=== PATIENT | female | born 1990 | race American Indian/Alaskan Native ===

== ENCOUNTER 2016-10-26 07:24 | Emergency (ER) | payer MEDICAID ==
[2016-10-26 07:39] VITALS: BP 111/71
[2016-10-26] MEDS ORDERED: MOTRIN PO ONE (08:27)
[2016-10-26] MEDS ORDERED: BICILLIN L-A IM ONE (08:27)
--- NOTE | 2016-10-26 08:50 | Emergency Department Report ---
ED ENT HPI - General Chief complaint: Sore Throat Stated complaint: SORE THROAT/EARACHE Time Seen by Provider: 10/26/16 08:15 Source: patient Mode of arrival: Ambulatory Limitations: No Limitations - History of Present Illness Initial comments: PT c/o sore throat and ear pain x two days. No relief with OTC cough drops or throat spray. PT states she was at home when she started feeling badly and she has been around someone with strep throat. PT states she is 1 month and she is not breast feeding. PT states she is able to eat and drink but states that it does cause an increase in her pain MD complaint: sore throat Onset/Timin -: Gradual, days(s) Location: throat Severity scale (0 -10): 10 Quality: sharp, constant Consistency: constant Improves with: none Worsens with: swallowing, eating Associated Symptoms: pain with swallowing, sore throat. denies: fever, cough, discharge from ear, rhinorrhea - Related Data Previous Rx's Medication Instructions Recorded Last Taken Type Ibuprofen [Motrin] 600 mg PO Q8H PRN #15 tablet 10/26/16 Unknown Rx traMADol [Ultram] 50 mg PO Q6HR PRN #12 tablet 10/26/16 Unknown Rx Allergies Allergy/AdvReac Type Severity Reaction Status Date / Time No Known Allergies Allergy Unverified 12/14/13 22:00 ED Dental HPI - General Chief complaint: Sore Throat Stated complaint: SORE THROAT/EARACHE Time Seen by Provider: 10/26/16 08:15 Source: patient Mode of arrival: Ambulatory Limitations: No Limitations - Related Data Previous Rx's Medication Instructions Recorded Last Taken Type Ibuprofen [Motrin] 600 mg PO Q8H PRN #15 tablet 10/26/16 Unknown Rx traMADol [Ultram] 50 mg PO Q6HR PRN #12 tablet 10/26/16 Unknown Rx Allergies Allergy/AdvReac Type Severity Reaction Status Date / Time No Known Allergies Allergy Unverified 12/14/13 22:00 ED Review of Systems ROS: Stated complaint: SORE THROAT/EARACHE Other details as noted in HPI Comment: All other systems reviewed and negative Constitutional: malaise. denies: fever ENT: ear pain, throat pain Respiratory: denies: cough Gastrointestinal: denies: abdominal pain Genitourinary: abnormal menses (delivered 09-29-16 ) ED Past Medical Hx - Past Medical History Previous Medical History?: Yes Additional medical history: ANXIETY - Surgical History Past Surgical History?: Yes Additional Surgical History: umbilical hernia - Social History Smoking Status: Never Smoker Substance Use Type: None - Medications Home Medications: Home Medications Medication Instructions Recorded Confirmed Last Taken Type Ibuprofen [Motrin] 600 mg PO Q8H PRN #15 tablet 10/26/16 Unknown Rx traMADol [Ultram] 50 mg PO Q6HR PRN #12 tablet 10/26/16 Unknown Rx ED Physical Exam - General Limitations: No Limitations General appearance: alert, in no apparent distress - Head Head exam: Present: atraumatic, normocephalic, normal inspection - Eye Eye exam: Present: normal appearance, PERRL, EOMI. Absent: conjunctival injection, nystagmus Pupils: Present: normal accommodation - ENT ENT exam: Present: mucous membranes moist, TM's normal bilaterally, normal external ear exam - Expanded ENT Exam Expanded Mouth exam: Present: normal external inspection. Absent: drooling, trismus, muffled voice, tongue normal Throat exam: Positive: tonsillar erythema, tonsillar exudate. Negative: R peritonsillar mass, L peritonsillar mass - Neck Neck exam: Present: normal inspection, tenderness, full ROM, lymphadenopathy - Respiratory Respiratory exam: Present: normal lung sounds bilaterally. Absent: respiratory distress, wheezes - Cardiovascular Cardiovascular Exam: Present: regular rate, normal rhythm, normal heart sounds - GI/Abdominal GI/Abdominal exam: Present: soft. Absent: tenderness - Extremities Exam Extremities exam: Present: normal inspection, full ROM - Back Exam Back exam: Present: normal inspection, full ROM - Neurological Exam Neurological exam: Present: alert, oriented X3 - Psychiatric Psychiatric exam: Present: normal affect, normal mood - Skin Skin exam: Present: warm, dry, intact, normal color ED Course Vital Signs 10/26/16 10/26/16 07:36 08:39 Temperature 99.4 F Pulse Rate 76 Respiratory 100 H 20 Rate Blood Pressure 111/71 - Reevaluation(s) Reevaluation #1: 10/26/16 08:53 PT aware of dx. PT treated empirically for strep pharyngitis. Reviewed strict return precautions with pt. no questions at this time. ED Medical Decision Making - Differential Diagnosis strep pharyngitis, viral uri, om Critical Care Time: No Critical care attestation.: If time is entered above; I have spent that time in minutes in the direct care of this critically ill patient, excluding procedure time. ED Disposition Clinical Impression: Exudative pharyngitis Disposition: TO HOME OR SELFCARE Is pt being admited?: No Does the pt Need Aspirin: No Condition: Stable Instructions: Strep Throat (ED) Additional Instructions: No driving or alcohol after taking Ultram for pain Try treating your pain with Motrin first Increase fluids Strep throat is contagious, make sure all your dishes/ utensils are washed Monitor your baby for fever, do not put anything that goes in your baby's mouth in yours, (for example, don't hold pacifier in your mouth and then give to baby ) Return to the ED if you can not swallow, feel your throat swelling, are drooling or have concerns Prescriptions: Ibuprofen [Motrin] 600 mg PO Q8H PRN #15 tablet PRN Reason: Pain traMADol [Ultram] 50 mg PO Q6HR PRN #12 tablet PRN Reason: Pain Referrals: [facility] [Outside] - 3-5 Days PRIMARY CAREMD [Primary Care Provider] - 3-5 Days MESSI BURGER MD [Staff Physician] - 3-5 Days Time of Disposition: 08:57
== END 2016-10-26 09:07 | disposition home or self-care (01) ==
LOC: ED 07:24
DX: J02.9 Acute pharyngitis, unspecified (principal); F41.9 Anxiety disorder, unspecified
CPT/HCPCS: 96372; 99282; J0561